=== PATIENT | female | born 1985 | race African-American/Black ===

== ENCOUNTER 2024-04-20 11:26 | Emergency (ER) | payer BC ==
[~2024-04-20] VITALS: Ht 170.2 cm; Wt 136.0 kg
[~2024-04-20 11:26] MED LIST: SULFACET SOD10 % OU
[2024-04-20 11:37] VITALS: BP 144/121
[2024-04-20 11:40] VITALS: BP 141/74
[2024-04-20 12:17] LABS: BASO% 0.2 % (0-3); HEMATOCRIT 36.8 % (37.0-47.0); HEMOGLOBIN 11.1 g/dl (12.0-16.0); IMMATURE GRANULOCYTES 0.4 % (0.0-5.0); LYMPH% 6.4 % (15-41); MEAN CELL VOLUME 87.6 fL CALC (80.0-100.0); MEAN CORPUSCULAR HGB 26.4 pG CALC (26.0-32.0); MEAN CORPUSCULAR HGB CONC 30.2 g/dL CAL (32.0-36.0); NEUT# 13.31 thou/uL (2.00-7.15); RED BLOOD COUNT 4.2 mill/uL (4.20-5.60); RED CELL DISTRI WIDTH 14.8 % (11.5-15.5)
[2024-04-20 12:35] LABS: BILIRUBIN, TOTAL 0.8 mg/dL (0.02-1.3); POTASSIUM 3.8 mmol/l (3.5-5.1); TOTAL PROTEIN 7.6 g/dL (6.3-8.2)
[2024-04-20 13:32] LABS: URINE BILIRUBIN - DIPSTICK Negative (NEGATIVE); URINE BLOOD DIPSTICK Negative (NEGATIVE); URINE COLOR Yellow; URINE GLUCOSE - DIPSTICK Negative (NEGATIVE); URINE KETONE Negative (NEGATIVE); URINE LEUK ESTERASE Negative (NEGATIVE); URINE NITRITE - DIPSTICK Negative (Negative); URINE PH 6.5 (4.5-8.0); URINE PROTEIN - DIPSTICK Trace mg/dL (NEG-TRACE); URINE UROBILINOGEN - DIPSTICK 0.2 E.U./dL (0.2)
[2024-04-20] MEDS ORDERED: VIBRAMYCIN100 M2 PO (15:13)
[2024-04-20 15:56] VITALS: BP 141/74
== END 2024-04-20 15:59 | disposition home or self-care (01) | DRG 866 ==
LOC: ED 11:26
PROVIDERS: Family Medicine; Nurse Practitioner
DX: B34.9 Viral infection, unspecified (principal); Z20.822 Contact with and (suspected) exposure to COVID-19